=== PATIENT | male | born 1995 | race Caucasian/White ===

== ENCOUNTER 2017-02-13 11:40 | Emergency (ER) | payer OTHER ==
[~2017-02-13] VITALS: Ht 180.3 cm; Wt 65.3 kg
[2017-02-13 11:41] VITALS: BP 132/85
[2017-02-13] MEDS ORDERED: IBUP600T26 PO (12:05)
[2017-02-13] MEDS ORDERED: CLEO300C2 PO (12:18)
[2017-02-13] MEDS ORDERED: HYDR-3713 PO (12:18)
== END 2017-02-13 12:27 | disposition home or self-care (01) ==
LOC: M ED 12:22
DX: K02.9 Dental caries, unspecified (principal); J32.9 Chronic sinusitis, unspecified

== ENCOUNTER 2017-08-04 12:33 | Emergency (ER) | payer OTHER ==
[~2017-08-04] VITALS: Ht 180.3 cm; Wt 65.9 kg
[2017-08-04 12:33] VITALS: BP 114/73
[~2017-08-04 12:33] MED LIST: CLEO300C2 PO; HYDR-3713 PO; IBUP-1022 PO
[2017-08-04] MEDS ORDERED: TYLETAB14 PO (13:15)
[2017-08-04] MEDS ORDERED: CLEO300C2 PO (13:15)
== END 2017-08-04 13:30 | disposition home or self-care (01) ==
LOC: M ED 12:33
DX: K02.9 Dental caries, unspecified (principal); F17.210 Nicotine dependence, cigarettes, uncomplicated; Z88.0 Allergy status to penicillin

== ENCOUNTER 2017-10-10 12:42 | Emergency (ER) | payer OTHER ==
[~2017-10-10] VITALS: Ht 177.8 cm; Wt 68.2 kg
[~2017-10-10 12:42] MED LIST changes: +TYLETAB14 PO
[2017-10-10] MEDS ORDERED: ZITHTAB PO (13:04)
[2017-10-10] MEDS ORDERED: CLAR5TAB7 PO (13:04)
[2017-10-10 13:20] VITALS: BP 114/74
== END 2017-10-10 13:35 | disposition home or self-care (01) ==
LOC: M ED 12:42
DX: J32.9 Chronic sinusitis, unspecified (principal); Z88.0 Allergy status to penicillin

== ENCOUNTER 2017-11-20 17:47 | Emergency (ER) | payer OTHER | END 2017-11-20 21:07 | disposition home or self-care (01) | LOC: M ED 17:47 | DX: J02.0 Streptococcal pharyngitis (principal) | CPT/HCPCS: 87880 ==

== ENCOUNTER 2018-01-01 11:01 | Emergency (ER) | payer OTHER | END 2018-01-01 12:00 | disposition home or self-care (01) | LOC: M ED 11:01 | DX: J32.9 Chronic sinusitis, unspecified (principal); Z88.0 Allergy status to penicillin | CPT/HCPCS: 99282 ==

== ENCOUNTER 2018-02-21 13:49 | Emergency (ER) | payer SELFPAY, OTHER | END 2018-02-21 16:24 | disposition home or self-care (01) | LOC: M ED 13:49 | DX: J31.0 Chronic rhinitis (principal); Z79.2 Long term (current) use of antibiotics; Z88.0 Allergy status to penicillin | CPT/HCPCS: 99283 ==

== ENCOUNTER 2018-03-01 16:46 | Emergency (ER) | payer OTHER, SELFPAY ==
[2018-03-01] MEDS: IBUPROFEN 600 MG TAB PO (17:11)
== END 2018-03-01 19:06 | disposition home or self-care (01) ==
LOC: M ED 16:46
DX: J32.2 Chronic ethmoidal sinusitis (principal); J34.2 Deviated nasal septum; Z79.899 Other long term (current) drug therapy; Z88.0 Allergy status to penicillin
CPT/HCPCS: 70486

== ENCOUNTER 2018-05-28 10:35 | Emergency (ER) | payer OTHER, MEDICAID ==
[2018-05-28 11:59] LABS: HEMOGLOBIN 14.6 g/dl (13.5-17.5); MEAN CORPUSCULAR HEMOGLOBIN 28.8 pg (27.0-33.0); MEAN CORPUSCULAR VOLUME 84.8 fl (80.0-96.0); PLATELET COUNT, AUTOMATED 265 10^3/uL (150-450); RED BLOOD COUNT 5.07 10^6/uL (4.30-6.10); RED CELL DISTRIBUTION WIDTH 12.6 % (11.5-14.5); WHITE BLOOD COUNT 7.1 10^3/uL (4.0-10.0)
[2018-05-28 12:20] LABS: ANION GAP 4 MEQ/L (8-16); BLOOD UREA NITROGEN 9 MG/DL (7-18); CALCIUM LEVEL 9.5 MG/DL (8.5-10.1); CARBON DIOXIDE LEVEL 32 MEQ/L (21-32); CHLORIDE LEVEL 103 MEQ/L (98-107); CREATININE FOR GFR 0.93 MG/DL (0.70-1.30); GLOMERULAR FILTRATION RATE > 60.0 (>60); GLUCOSE, FASTING 107 MG/DL (70-100); POTASSIUM SERUM 4.6 MEQ/L (3.5-5.1); SODIUM LEVEL 139 MEQ/L (136-145)
[2018-05-28] MEDS: KETOROLAC TROMETHAMINE 10 MG TAB PO (12:38)
[2018-05-28 12:53] LABS: TROPONIN I < 0.02 NG/ML (< 0.10)
[2018-05-28 12:58] LABS: C REACTIVE PROTEIN QUANTITATIV 0.77 MG/DL (0.00-0.30); CK-MB VALUE MASS < 1.0 NG/ML (<3.6); CPK CREATINE PHOSPHOKINASE 96 U/L (39-308); MB/CK RELATIVE INDEX 1.04 (< OR =4)
== END 2018-05-28 13:24 | disposition home or self-care (01) ==
LOC: M ED 10:35
DX: M94.0 Chondrocostal junction syndrome [Tietze] (principal); J32.9 Chronic sinusitis, unspecified; Z88.0 Allergy status to penicillin
CPT/HCPCS: 71046

== ENCOUNTER 2018-06-05 12:11 | Emergency (ER) | payer OTHER | END 2018-06-05 14:16 | disposition home or self-care (01) | LOC: M ED 12:11 | DX: J31.0 Chronic rhinitis (principal); Z79.51 Long term (current) use of inhaled steroids; Z88.0 Allergy status to penicillin | CPT/HCPCS: 99282 ==

== ENCOUNTER 2018-07-22 07:38 | Day surgery (SDC) | payer OTHER ==
[~2018-07-22 07:38] MED LIST changes: -CLEO300C2 PO; -HYDR-3713 PO; -IBUP-1022 PO; +LIDOCAINE 1% MDV 20ML VIAL SQ; -TYLETAB14 PO
[2018-07-22] MEDS ORDERED: ROCURONIUM BROMIDE 50 MG/5 ML VIAL As Ordered (07:49)
[2018-07-22] MEDS ORDERED: fentaNYL 100 MCG/2 ML INJECTION (J3010) As Ordered (07:49)
[2018-07-22] MEDS ORDERED: PROPOFOL 200 MG/20 ML VIAL As Ordered (07:49)
[2018-07-22] MEDS ORDERED: LIDOCAINE 2% INJ 100 MG/5 ML SYRINGE As Ordered (07:49)
[2018-07-22] MEDS ORDERED: METOCLOPRAMIDE INJ 10MG/2ML VIAL (J2765) As Ordered (07:49)
[2018-07-22] MEDS ORDERED: ONDANSETRON 4MG/2ML VIAL (J2405) As Ordered (07:49)
[2018-07-22] MEDS ORDERED: MIDAZOLAM INJ 2 MG/2 ML VIAL (J2250) As Ordered (07:49)
[2018-07-22] MEDS: LR 1,000 ML IV (07:58)
[2018-07-22] MEDS: EPINEPHrine 1MG/ML INJ 30ML MD-VIAL As Ordered (09:04)
[2018-07-22] MEDS: METHYLENE BLUE 0.5% (5MG/ML) 10 ML AMP (PROVAYBLUE)(Q9968 PER 1MG) As Ordered (09:05)
[2018-07-22] MEDS ORDERED: dexameTHASONE 4 MG/ML 1ML VIAL (J1100) As Ordered (09:06)
[2018-07-22] MEDS: LIDOCAINE W/EPINEPHRINE 1% 20ML VIAL As Ordered (10:00)
[2018-07-22] MEDS ORDERED: NEOSTIGMINE 10 MG/10 ML VIAL (J2710) As Ordered (10:09)
[2018-07-22] MEDS ORDERED: GLYCOPYRROLATE INJ 0.2 MG/ML 2 ML VIAL As Ordered (10:09)
[2018-07-22] MEDS ORDERED: LR 1,000 ML IV ×2 (10:30)
[2018-07-22] MEDS ORDERED: ACETAMINOPH W/CODEINE #3 TAB UD PO (10:30)
[2018-07-22] MEDS ORDERED: fentaNYL 100 MCG/2 ML INJECTION (J3010) IV (10:30)
[2018-07-22] MEDS: PERCOCET 5MG/325MG TAB PO ×2 (10:38→11:07)
[2018-07-22] MEDS: ONDANSETRON 4MG/2ML VIAL (J2405) IV (10:46)
== END 2018-07-22 13:20 | disposition home or self-care (01) ==
LOC: M SDC 07:38
DX: J34.2 Deviated nasal septum (principal); J32.8 Other chronic sinusitis; R51 Headache; J45.909 Unspecified asthma, uncomplicated; R12 Heartburn; Z88.0 Allergy status to penicillin
CPT/HCPCS: 30520

== ENCOUNTER 2018-07-25 13:32 | Emergency (ER) | payer OTHER ==
[2018-07-25] MEDS: NS 1,000 ML IV ×2 (15:30→17:51)
[2018-07-25 16:30] LABS: BASO % 0.3 % (0.0-1.0); EOS % 0.3 % (0.0-3.0); HEMATOCRIT 40.4 % (42.0-52.0); HEMOGLOBIN 14.1 g/dl (13.5-17.5); IMMATURE GRANULOCYTE % 0.3 % (0-3.0); LYMPH # 1.8 10^3/uL (1.5-6.5); MEAN CORPUSCULAR HEMOGLOBIN 28.4 pg (27.0-33.0); MEAN CORPUSCULAR HGB CONC 34.9 g/dl (32.0-36.5); MEAN CORPUSCULAR VOLUME 81.3 fl (80.0-96.0); MONO # 1.2 10^3/uL (0.0-0.8); MONO % 10.4 % (0.0-5.0); NEUTROPHILS # 8.7 10^3/uL (1.8-7.7); NEUTROPHILS % 73.7 % (36.0-66.0); PLATELET COUNT, AUTOMATED 248 10^3/uL (150-450); RED BLOOD COUNT 4.97 10^6/uL (4.30-6.10); RED CELL DISTRIBUTION WIDTH 11.9 % (11.5-14.5); WHITE BLOOD COUNT 11.7 10^3/uL (4.0-10.0)
[2018-07-25] MEDS: KETOROLAC 30 MG/ML VIAL (J1885) IV (17:51)
== END 2018-07-25 18:53 | disposition home or self-care (01) ==
LOC: M ED 13:32
DX: G89.18 Other acute postprocedural pain (principal); E86.0 Dehydration; J34.89 Other specified disorders of nose and nasal sinuses; J32.9 Chronic sinusitis, unspecified; Z88.0 Allergy status to penicillin; Z88.1 Allergy status to other antibiotic agents
CPT/HCPCS: J1885

== ENCOUNTER 2018-12-17 10:55 | Emergency (ER) | payer OTHER ==
[~2018-12-17] VITALS: Ht 180.3 cm; Wt 63.6 kg
[~2018-12-17 10:55] MED LIST changes: +CEFD1CAP8 PO; +CLAR1TAB13; +CLAR1TAB2 PO; +CLAR5TAB7 PO; +CLEO300C2 PO; +FLON1SPR; +FLON1SPR NARES; +HYDR-3713 PO; +IBUP-1022 PO; -LIDOCAINE 1% MDV 20ML VIAL SQ; +MUCI600T37 PO; +NAPR-885 PO; +NORC1TAB4 PO; +SING10TA32 PO; +SUDA30TA8 PO; +TYLETAB14 PO; +ZITHTAB PO
--- NOTE | 2018-12-17 11:54 | REP ---
Clinical: Acute chest pain . Comparison: 05/28/2018 . Technique: PA and lateral. Findings: The mediastinum and cardiac silhouette are normal. The lung torres are clear and without acute consolidation, effusion, or pneumothorax. The skeletal structures are intact and normal. Impression: 1. No acute cardiopulmonary process. Electronically Signed by Kilo Canales MD 12/17/2018 11:46 A
[2018-12-17 12:11] VITALS: BP 100/57
--- NOTE | 2018-12-18 10:13 | ECGEPIP ---
Stationary ECG Study [facility] - ED Test Date: 2018-12-17 Pat Name: RITU MARIA Department: Room: - Gender: M [employer] Program Specialist: RUPERTO : 1995 Requested By: Yonatan Lino Order Number: [id number] Reading MD: Felicity Naqvi Measurements Intervals [place] Rate: 70 P: 67 DC: 182 QRS: 72 QRSD: 97 T: 47 QT: 368 QTc: 399 Interpretive Statements SINUS RHYTHM POSSIBLE LEFT ATRIAL ENLARGEMENT INCOMPLETE RIGHT BUNDLE BRANCH BLOCK SIMILAR 05/28/18 Electronically Signed On 12-18-2018 10:13:19 EST by Felicity Naqvi
== END 2018-12-17 12:12 | disposition home or self-care (01) ==
LOC: M ED 10:55
DX: M94.0 Chondrocostal junction syndrome [Tietze] (principal); Z88.0 Allergy status to penicillin; Z88.1 Allergy status to other antibiotic agents

== ENCOUNTER 2019-01-05 14:49 | Emergency (ER) | payer OTHER ==
[~2019-01-05] VITALS: Ht 177.8 cm; Wt 65.9 kg
[2019-01-05 16:08] LABS: INFLUENZA A AMPLIFICATION POSITIVE (NEGATIVE); INFLUENZA B AMPLIFICATION NEGATIVE (NEGATIVE)
[2019-01-05] MEDS ORDERED: PSEUDOEPHEDRINE 30 MG TAB PO STA (17:12)
[2019-01-05] MEDS ORDERED: NAPROXEN 250 MG TAB PO ONE (17:15)
[2019-01-05] MEDS ORDERED: ALBUTEROL SULFATE 2.5 MG/0.5 ML INH NEB SOLN NEB ONE (17:15)
[2019-01-05 17:50] VITALS: BP 127/77
[2019-01-05] MEDS ORDERED: NAPR-50 PO (17:50)
[2019-01-05] MEDS ORDERED: PROAAER10 INH (17:50)
[2019-01-05] MEDS ORDERED: PSEU1TAB3 PO (17:50)
== END 2019-01-05 17:56 | disposition home or self-care (01) ==
LOC: M ED 14:49
DX: J09.X2 Influenza due to identified novel influenza A virus with other respiratory manifestations (principal)

== ENCOUNTER → 2019-04-03 | Outpatient (REF) | payer OTHER ==
[~2019-04-03] MED LIST changes: +NAPR-837 PO; -NORC1TAB4 PO; +NORC1TAB7 PO; +PROAAER10 INH; +PSEU1TAB3 PO
[2019-04-03 15:24] LABS: BASO # 0.1 10^3/uL (0.0-0.2); BASO % 0.9 % (0.0-1.0); EOS # 0.3 10^3/uL (0.0-0.50); EOS % 4.8 % (0.0-3.0); HEMOGLOBIN 14.4 g/dl (13.5-17.5); LYMPH # 2.8 10^3/uL (1.5-6.5); LYMPH % 43.2 % (24.0-44.0); MEAN CORPUSCULAR HEMOGLOBIN 28.7 pg (27.0-33.0); MEAN CORPUSCULAR HGB CONC 33.5 g/dl (32.0-36.5); MEAN CORPUSCULAR VOLUME 85.8 fl (80.0-96.0); MONO # 0.6 10^3/uL (0.0-0.8); MONO % 8.8 % (0.0-5.0); NEUTROPHILS # 2.7 10^3/uL (1.8-7.7); NEUTROPHILS % 42.1 % (36.0-66.0); PLATELET COUNT, AUTOMATED 285 10^3/uL (150-450); RED BLOOD COUNT 5.01 10^6/uL (4.30-6.10); WHITE BLOOD COUNT 6.5 10^3/uL (4.0-10.0)
[2019-04-03 16:04] LABS: ALBUMIN 4.2 GM/DL (3.2-5.2); ALT/SGPT 29 U/L (12-78); BILIRUBIN,TOTAL 0.8 MG/DL (0.2-1.0); BLOOD UREA NITROGEN 10 MG/DL (7-18); CALCIUM LEVEL 9.3 MG/DL (8.5-10.1); CARBON DIOXIDE LEVEL 31 MEQ/L (21-32); CHLORIDE LEVEL 104 MEQ/L (98-107); CHOLESTEROL LEVEL 187 MG/DL (<200); CHOLESTEROL RISK RATIO 3.528 (<5); CREATININE FOR GFR 0.92 MG/DL (0.70-1.30); FREE T4 1.01 NG/DL (0.76-1.46); GLOMERULAR FILTRATION RATE > 60.0 (>60); GLUCOSE, FASTING 115 MG/DL (70-100); HDL CHOLESTEROL 53 MG/DL (>40); LDL CHOLESTEROL 114 MG/DL (<100); NON-HDL-C 134 MG/DL; POTASSIUM SERUM 4.5 MEQ/L (3.5-5.1); SODIUM LEVEL 139 MEQ/L (136-145); TOTAL 25(OH) VITAMIN D 21.9 NG/ML (30.0-100.0); TOTAL PROTEIN 8.4 GM/DL (6.4-8.2); TRIGLYCERIDES LEVEL 98 MG/DL (<150)
== END ==
LOC: M SFHCSACK 09:38
PROVIDERS: ATTEND Physician Assistant
DX: Z86.2 Personal history of diseases of the blood and blood-forming organs and certain disorders involving the immune mechanism (principal); E78.00 Pure hypercholesterolemia, unspecified; Z83.49 Family history of other endocrine, nutritional and metabolic diseases; Z13.21 Encounter for screening for nutritional disorder

== ENCOUNTER → 2019-12-02 | Outpatient (REF) | payer OTHER ==
[~2019-12-02] MED LIST changes: +ONDA4TAB6 PO
[2019-12-02 14:14] LABS: BASO # 0.1 10^3/uL (0.0-0.2); BASO % 0.8 % (0.0-1.0); EOS # 0.4 10^3/uL (0.0-0.5); EOS % 4.4 % (0.0-3.0); HEMATOCRIT 41.5 % (42.0-52.0); HEMOGLOBIN 13.8 g/dl (13.5-17.5); LYMPH # 2.9 10^3/uL (1.5-5.0); LYMPH % 32.1 % (24.0-44.0); MEAN CORPUSCULAR HEMOGLOBIN 28.2 pg (27.0-33.0); MEAN CORPUSCULAR HGB CONC 33.3 g/dl (32.0-36.5); MEAN CORPUSCULAR VOLUME 84.9 fl (80.0-96.0); MONO # 0.7 10^3/uL (0.0-0.8); MONO % 7.9 % (0.0-5.0); NEUTROPHILS # 4.9 10^3/uL (1.5-8.5); NEUTROPHILS % 54.6 % (36.0-66.0); PLATELET COUNT, AUTOMATED 304 10^3/uL (150-450); RED BLOOD COUNT 4.89 10^6/uL (4.30-6.10); WHITE BLOOD COUNT 8.9 10^3/uL (4.0-10.0)
[2019-12-02 14:27] LABS: ALBUMIN 4.6 GM/DL (3.2-5.2); ALT/SGPT 17 U/L (12-78); BILIRUBIN,TOTAL 0.5 MG/DL (0.2-1.0); BLOOD UREA NITROGEN 14 MG/DL (7-18); CALCIUM LEVEL 9.3 MG/DL (8.5-10.1); CARBON DIOXIDE LEVEL 28 MEQ/L (21-32); CHLORIDE LEVEL 105 MEQ/L (98-107); CHOLESTEROL LEVEL 196 MG/DL (<200); CREATININE FOR GFR 0.93 MG/DL (0.70-1.30); FREE T4 1.16 NG/DL (0.76-1.46); GLOMERULAR FILTRATION RATE > 60.0 (>60); GLUCOSE, FASTING 110 MG/DL (70-100); HDL CHOLESTEROL 50 MG/DL (>40); LDL CHOLESTEROL 127 MG/DL (<100); NON-HDL-C 146 MG/DL; POTASSIUM SERUM 4.1 MEQ/L (3.5-5.1); SODIUM LEVEL 140 MEQ/L (136-145); TOTAL PROTEIN 8.1 GM/DL (6.4-8.2); TRIGLYCERIDES LEVEL 97 MG/DL (<150)
[2019-12-02 14:29] LABS: TOTAL 25(OH) VITAMIN D 22.2 NG/ML (30.0-100.0)
[2019-12-02 14:49] LABS: HEMOGLOBIN A1c 5.8 %
== END ==
LOC: M SFHCSACK 10:41
PROVIDERS: ATTEND Physician Assistant
DX: J30.9 Allergic rhinitis, unspecified (principal); R73.01 Impaired fasting glucose; E03.9 Hypothyroidism, unspecified; E78.00 Pure hypercholesterolemia, unspecified; E55.9 Vitamin D deficiency, unspecified

== ENCOUNTER 2022-01-03 18:43 | Emergency (ER) | payer OTHER ==
[~2022-01-03] VITALS: Ht 180.3 cm; Wt 66.3 kg
[~2022-01-03 18:43] MED LIST changes: -CEFD1CAP8 PO; +CEFD300C41 PO
[2022-01-03] MEDS ORDERED: NS 1,000 ML IV ONE (21:15)
[2022-01-03 21:40] LABS: BASO # 0.1 10^3/uL (0.0-0.2); BASO % 0.5 % (0.0-1.0); EOS # 0.1 10^3/uL (0.0-0.5); EOS % 1.1 % (0.0-3.0); HEMATOCRIT 40.8 % (42.0-52.0); HEMOGLOBIN 13.6 g/dl (13.5-17.5); LYMPH # 1.9 10^3/uL (1.5-5.0); LYMPH % 16.7 % (24.0-44.0); MEAN CORPUSCULAR HGB CONC 33.3 g/dl (32.0-36.5); MEAN CORPUSCULAR VOLUME 84.1 fl (80.0-96.0); MONO # 0.5 10^3/uL (0.0-0.8); MONO % 4.5 % (2.0-8.0); NEUTROPHILS # 8.8 10^3/uL (1.5-8.5); NEUTROPHILS % 76.9 % (36.0-66.0); PLATELET COUNT, AUTOMATED 305 10^3/uL (150-450); RED BLOOD COUNT 4.85 10^6/uL (4.30-6.10); WHITE BLOOD COUNT 11.4 10^3/uL (4.0-10.0)
[2022-01-03 22:10] LABS: BLOOD UREA NITROGEN 11 MG/DL (7-18); CALCIUM LEVEL 9.8 MG/DL (8.5-10.1); CARBON DIOXIDE LEVEL 29 MEQ/L (21-32); CHLORIDE LEVEL 103 MEQ/L (98-107); CREATININE FOR GFR 0.84 MG/DL (0.70-1.30); GLOMERULAR FILTRATION RATE > 60.0 (>60); GLUCOSE, FASTING 100 MG/DL (70-100); POTASSIUM SERUM 4.1 MEQ/L (3.5-5.1); SODIUM LEVEL 137 MEQ/L (136-145)
[2022-01-03 22:14] LABS: CK-MB VALUE MASS < 1.0 NG/ML (<3.6); CPK CREATINE PHOSPHOKINASE 62 U/L (39-308); MB/CK RELATIVE INDEX 1.61 (< OR =4)
[2022-01-03 22:15] VITALS: BP 125/79
== END 2022-01-03 22:58 | disposition home or self-care (01) ==
LOC: M ED 18:43
DX: R00.2 Palpitations (principal); Z88.0 Allergy status to penicillin

== ENCOUNTER 2023-03-09 05:31 | Emergency (ER) | payer OTHER ==
[~2023-03-09] VITALS: Ht 157.5 cm; Wt 61.8 kg
[~2023-03-09 05:31] MED LIST changes: +MONT-5 PO; -SING10TA32 PO
[2023-03-09 06:26] LABS: BASO # 0.1 10^3/uL (0.0-0.2); BASO % 0.4 % (0.0-1.0); EOS # 0.3 10^3/uL (0.0-0.5); HEMATOCRIT 43.7 % (42.0-52.0); HEMOGLOBIN 14.2 g/dl (13.5-17.5); LYMPH # 4.4 10^3/uL (1.5-5.0); LYMPH % 39.8 % (24.0-44.0); MEAN CORPUSCULAR HEMOGLOBIN 25.1 pg (27.0-33.0); MEAN CORPUSCULAR HGB CONC 32.5 g/dl (32.0-36.5); MEAN CORPUSCULAR VOLUME 77.2 fl (80.0-96.0); MONO % 8.8 % (2.0-8.0); NEUTROPHILS # 5.3 10^3/uL (1.5-8.5); NEUTROPHILS % 47.8 % (36.0-66.0); PLATELET COUNT, AUTOMATED 306 10^3/uL (150-450); RED BLOOD COUNT 5.66 10^6/uL (4.30-6.10); WHITE BLOOD COUNT 11.1 10^3/uL (4.0-10.0)
[2023-03-09 06:48] LABS: LIPASE 30 U/L (12-53)
[2023-03-09 06:50] LABS: ALBUMIN 3.8 G/DL (3.2-5.2); ALKALINE PHOSPHATASE 219 U/L (46-116); ALT/SGPT 43 U/L (7.0-40); AST/SGOT 32 U/L (<34); BILIRUBIN,DIRECT 0.2 MG/DL (<0.4); BILIRUBIN,TOTAL 0.5 MG/DL (0.3-1.2); BLOOD UREA NITROGEN 12 MG/DL (9-23); CALCIUM LEVEL 9.4 MG/DL (8.5-10.1); CARBON DIOXIDE LEVEL 26 MMOL/L (20-31); CHLORIDE LEVEL 105 MMOL/L (98-107); CREATININE FOR GFR 0.46 MG/DL (0.70-1.30); GLOMERULAR FILTRATION RATE > 60.0 (>60); GLUCOSE, FASTING 122 MG/DL (60-100); POTASSIUM SERUM 3.9 MMOL/L (3.5-5.1); SODIUM LEVEL 139 MMOL/L (136-145); TOTAL PROTEIN 7.8 G/DL (5.7-8.2)
[2023-03-09 07:28] VITALS: BP 134/70
== END 2023-03-09 07:31 | disposition home or self-care (01) ==
LOC: M ED 05:31
DX: K52.9 Noninfective gastroenteritis and colitis, unspecified (principal); R51.9 Headache, unspecified; Z88.0 Allergy status to penicillin